=== PATIENT | female | born 1950 | race Caucasian/White ===

== ENCOUNTER 2019-09-30 15:34 | Observation (INO) | payer MEDICARE, BC, SELFPAY ==
[2019-09-30] VITALS (48 sets, daily range): BP systolic 100–150; BP diastolic 59–92; PULSE 51–81; RESP 11–23; TEMP 36.5–36.6; O2SAT 94–100
--- NOTE | 2019-09-30 16:01 | ED.GENADUL_ITS ---
Discharge Plan Discharge Details Chief Complaint: Chest Pain Admit Date/Time: 09/30/19 20:10 Admit Provider: Branden Rasheed Attending Provider: Branden Rasheed Primary Care Provider: Kenton Pizarro ED Provider: Tangela Conn Discharge Data Discharge Date/Time-TO BE ENTERED AT DEPARTURE: 09/30/19 21:10 Medical Decision Making Patient is a 69 year old female presenting today with c/c of CP that began a few hours ago. States that pain began in the left arm and states that it felt like her upper arm was in a vice. This discomfort began while she was waiting for her to have his chemotherapy. States that the CP did not develop until she was driving her home. States that this pain radiated from her central chest to her left shoulder. States that she began to feel nauseated at that time. No vomiting. [place] slightly SOB. Currently asympaomtic. States that symptoms resolved when she arrived here. She had an angioplasty in 1992, is not currently taking ASA or anticoagulant. States that this pain is not as severe as the pain she experienced at that time. She states that her mother in her 60s of cardiac disease, brother had bipast in his 60s. Have requested records from PCP. ECG reviewed by Dr. Marinelli. NSR with rate of 63 with no acute ischemic changes noted. Patient given full dose ASA, labs and CXR pending. Currently asympatomic so will hold off on nitro or pain medications at this time. Patient was initially asymptomatic. However, at approximately 1855, the patient began endorsing lightheadedness and mild nausea. She does not have any chest discomfort. She is not short of breath. No arm pain. We will repeat the EKG. Give Zofran to help with symptomatic management. With her feeling lightheaded, I am hesitant to begin her on nitro. After the EKG, I will discuss this further. EKG was reviewed by Dr. Black. Patient is in a sinus bradycardia with a rate of 56. No acute ischemic changes. Otherwise unchanged from previous. Patient is on metoprolol and has been taking her medications as prescribed. Repeat troponin remains less than 0.05. Patient continues to be asymptomatic. Patient has a heart score of 6. Am quite concerned regarding her moderate score and concerning history. Discussed risk/benefits of admission with the patient and her family. Spoke with hospitalist who agrees to admission for continued monitoring and stress testing tomorrow. HPI General Mode of arrival: ambulatory . Date/Time Provider Initiated Documentation: 09/30/19 15:58 . Limitations to Documentation: no limitations . Information obtained by: patient and RN notes reviewed . History of Present Illness 69 year old F presents to the emergency department with the chief complaint of CP, described as moderate and similar to prior episodes, Quality is described as stabbing (tight), and is localized to the chest. Patient extremity (LUE). Patient started experiencing this hour(s) and it has been now resolved. No relieving factors improve symptom(s), No exacerbating factors reported and Other factors that worsen symptoms (was at rest when the symptoms began) . Patient notes chest pain, nausea/vomiting (was nauseated, now resolved) and shortness of breath (now resolved); denies cough, diaphoresis, fever/chills, headaches and weakness. Patient did receive the following treatments prior to arrival, none Related Data Home Medications Medication Instructions Recorded Confirmed albuterol sulfate [Ventolin HFA] 2 puff INHALATION 6XD PRN 09/30/19 09/30/19 atorvastatin [Lipitor] 40 mg PO DAILY 09/30/19 09/30/19 cholecalciferol (vitamin D3) 2,000 unit PO DAILY 09/30/19 09/30/19 [Vitamin D3] docusate sodium [Colace] 100 mg PO DAILY 09/30/19 09/30/19 fluoxetine [Prozac] 40 mg PO DAILY 09/30/19 09/30/19 levothyroxine 75 mcg PO DAILY 09/30/19 09/30/19 loratadine 10 mg PO DAILY 09/30/19 09/30/19 losartan 100 mg PO DAILY 09/30/19 09/30/19 metformin 1,000 mg PO BID 09/30/19 09/30/19 metoprolol tartrate 50 mg PO BID 09/30/19 09/30/19 polyethylene glycol 3350 [Miralax] 17 g PO DAILY PRN 09/30/19 09/30/19 sennosides [Senokot] 8.6 mg PO QHS 09/30/19 09/30/19 topiramate [Topamax] 100 mg PO BID 09/30/19 09/30/19 ursodiol 300 mg PO BID 09/30/19 09/30/19 Allergies Allergy/AdvReac Type Severity Reaction Status Date / Time adhesive Allergy Unverified 09/30/19 15:45 Penicillins Allergy Unverified 09/30/19 15:45 Sulfa (Sulfonamide Allergy Unverified 09/30/19 15:45 Antibiotics) General Stated Complaint: Chest Pain NOE: 2 Review of Systems Constitutional Constitutional: Reports as per HPI, Denies chills, Denies fever(s), Denies headache(s), Denies lethargy and Denies poor appetite Eyes Eyes: Denies change in vision ENT Ears, Nose, Mouth, and Throat: Denies vertigo (hx of vertigo, none recently), Reports dizziness (lightheaded) and Denies headache(s) Cardiovascular Cardiovascular: Reports as per HPI, Reports chest pain, Denies dyspnea and Denies dyspnea on exertion Respiratory Respiratory: Reports as per HPI, Denies chest congestion, Denies cough, Denies pain on inspiration, Denies pain with cough, Denies dyspnea, Denies dyspnea on exertion and Denies wheezing Gastrointestinal Gastrointestinal: Reports as per HPI, Denies abdominal pain, Denies diarrhea, Reports nausea and Denies vomiting Musculoskeletal Musculoskeletal: Reports as per HPI, Denies back pain, Reports numbness (reports tingling in left hand) and Reports radiating pain into limb (into LUE) Integumentary/Breasts Skin/Breast: Reports as per HPI and Denies rash Neurologic Neurologic: Reports as per HPI, Denies vertigo (hx of vertigo, none recently), Reports dizziness (lightheaded), Denies headache(s) and Reports numbness (reports tingling in left hand) Allergic/Immunologic Allergic/Immunologic: Denies wheezing [facility] Medical History Anxiety (Chronic) Arthritis (Acute) Biliary cirrhosis (Acute) Coronary arteriosclerosis (Acute) Depression (Chronic) Fibromyalgia (Acute) Gastroesophageal reflux disease (Chronic) History of asthma (Acute) Hyperlipidemia (Acute) Hypertension (Chronic) Hypothyroidism (Chronic) Malignant tumor of rectum (Acute) Migraine (Chronic) Sciatica (Acute) Sjogren's disease (Acute) Sleep disorder (Acute) Type 2 diabetes mellitus (Acute) Vertigo (Acute) Family History Mother , heart disease Diabetes Hypertension Social History Smoking/Tobacco Use Status: Never Alcohol Intake: never Drug use: Never Substance use type: does not use Do you feel safe at home: Yes Do you feel safe in your relationship?: Yes Exam Const General: cooperative, healthy appearing, comfortable, no acute distress and well developed Nutritional Appearance: well nourished and overweight Orientation: alert, awake and oriented x3 HENMT Head: normal to inspection Ears: hearing grossly normal bilaterally Mouth: moist mucous membranes Chest Chest: normal inspection of the chest, normal palpation of entire chest wall and no crepitus Resp Effort & Inspection: normal respiratory effort, able to speak in complete sentences and no respiratory distress Auscultation: clear to auscultation bilaterally, no rales, no rhonchi and no wheezes Cardio Rate: regular rate Rhythm: regular rhythm Heart Sounds: S1 normal and S2 normal GI Inspection: normal to inspection, no edema and non-distended Palpation: soft, no hepatosplenomegaly, not firm, no guarding, not rigid and nontender Auscultation: normal bowel sounds Back/Spine/Pelvis Back: no CVA tenderness Thoracic/Lumbar Spine: thoracic and lumbar spine normal to inspection Skin General skin exam: no rashes or lesions noted Trauma: no lacerations or abrasions Neuro General: alert, awake and oriented x3 Cognition: normal cognition Speech: speech normal Gait: normal gait Extrem General: normal to inspection, normal capillary refill, no pedal edema, no calf tenderness and normal gait Psych Appearance: grossly normal and well kempt Mental Status: mental status grossly normal Speech and Movement: speech and movement normal Course Vital Signs Vital signs: Vital Signs Temperature 36.5 C 09/30/19 15:37 Pulse 64 09/30/19 15:37 Respiratory Rate 14 09/30/19 15:37 Blood Pressure 146/88 H 09/30/19 15:37 Pulse Oximetry 100 09/30/19 15:37 Temperature 36.5 C 09/30/19 15:37 Temperature Source Oral 09/30/19 15:37 Pulse 64 09/30/19 15:37 Respiratory Rate 14 09/30/19 15:37 Respiratory Effort Non-Labored 09/30/19 15:58 Blood Pressure 146/88 H 09/30/19 15:37 Blood Pressure Position Supine 09/30/19 15:37 Pulse Oximetry 100 09/30/19 15:37 Oxygen Delivery Method Room Air 09/30/19 15:37 Oxygen Flow Rate 0 09/30/19 15:37
[2019-09-30 16:29] LABS: Abs Immature Grans 0.01 k/cumm (0.0-0.09); Absolute Basophil Count 0.03 k/cumm (0.0-0.2); Absolute Eosinophil Count 0.18 k/cumm (0.0-0.7); Absolute Lymphocyte Count 1.57 k/cumm (1.2-3.4); Absolute Monocyte Count 0.56 k/cumm (0.11-0.7); Basophils % 0.6; Eosinophils % 3.4; HCT 39.8 % (36.0-46.0); HGB 13.3 g/dL (12.0-15.5); Immature Grans % 0.2 %; Lymphocytes % 29.9; Mean Corp. HGB Concentration 33.4 g/dL (32.0-36.0); Mean Corpuscular Hemoglobin 30.2 pg (27.0-33.0); Mean Corpuscular Volume 90.2 fL (80-95); Mean Platelet Volume 10.4 fL (8.0-11.0); Monocytes % 10.7; Neutrophils % 55.2; Platelet Count 277 x1000/uL (130-400); RBC 4.41 m/cumm (4.00-5.20); White Blood Cell Count 5.25 k/cumm (4.4-10.8)
[2019-09-30] MEDS: Aspirin 81 MG CHEW 324 MG CH (16:31)
[2019-09-30 16:43] LABS: PTT Activated 23.3 sec (21.0-31.4); Prothrombin Time 9.9 sec (9.3-11.0)
[2019-09-30 16:46] LABS: ALT 22 U/L (14-59); AST 19 U/L (15-37); Albumin 3.4 g/dL (3.4-5.0); Alkaline Phosphatase 97 U/L (46-116); Anion Gap 9.3 mmol/L (3-11); BUN 18 mg/dL (7-18); Bilirubin, Total 0.5 mg/dL (0.2-1.0); CO2 26.7 mmol/L (21.0-32.0); CREATININE 0.89 mg/dL (0.55-1.02); Calcium 9.4 mg/dL (8.5-10.1); Chloride 104 mmol/L (98-107); Glucose 105 mg/dL (74-106); Magnesium 1.7 mg/dL (1.8-2.4); Potassium 3.9 mmol/L (3.5-5.1); Sodium 140 mmol/L (136-145); Total Protein 7.6 g/dL (6.4-8.2); Troponin I < 0.05 ng/Ml (<0.06)
--- NOTE | 2019-09-30 16:56 | DI.RAD_ITS ---
EXAM: XR CHEST 2V PA LATERAL INDICATION: CHEST PAIN COMPARISON: No exams were available for comparison TECHNIQUE: 2D digital imaging was performed. FINDINGS: Heart size and pulmonary vasculature are within normal limits. The lungs are clear. No pleural effu elijah or pneumothorax is present. Age-appropriate degenerative changes are seen in the spine. There are surgical clips in the upper quadrant of the right abdomen, most consistent with prior cholecystec corina. IMPRESSION: No acute pulmonary process.
--- NOTE | 2019-09-30 17:03 | DI.VRAD_ITS ---
PROCEDURE INFORMATION: Exam: XR Chest, 2 Views Exam date and time: 09/30/2019 5:01 PM Age: 69 years old Clinical indication: Chest pain TECHNIQUE: Imaging protocol: XR of the chest Views: 2 views. COMPARISON: No relevant prior studies available. FINDINGS: Lungs: COPD. Pleural space: Unremarkable. No pleural effusion. No pneumothorax. Heart/Mediastinum: Unremarkable. No cardiomegaly. Bones/joints: Degenerative changes in the spine. Other findings: Cholecystectomy. IMPRESSION: COPD Dictated and Authenticated by: Tree Phan MD. Ordering:ABHINAV Honeycutt MD
[2019-09-30] MEDS: Ondansetron 4 MG/2 ML VIAL IVP (18:13)
[2019-09-30 19:19] LABS: Troponin I < 0.05 ng/Ml (<0.06)
--- NOTE | 2019-09-30 19:58 | W.PM.HP.N ---
Date of service: 09/30/19 Time of Service: 19:58 Assessment and Plan Assessment and plan (1) Arm pain: Status: Acute Assessment and plan: If not for the report of this symptom complex being similar to prior ACS I might have described this as more suggestive of cervical radiculitis. We will obtain third troponin and if negative would advise stress test in morning.Patient has received ASA here in ER. Will hold beta duane pending stress test, usual meds as is otherwise. Reviewed ADs, requests full code. History of Present Illness History of Present Illness Chief Complaint: arm pain Narrative: 69 female with remote h/o CAD, s/p PCI in . Today had episode of tightness LUE, with parashesiass in hand and then radiation of pain to posterior left neck and shoulder blade. At some point there was also some sharp left sided CP. No SOB, diaphoresis, some nausea. Reports similar though less intense such symptoms over passt 2 weeks. No relation to activity or neck motion. Of notte patient states that this constellation of symptoms is quite similarr to initial presentation at time of PCI. In ER troponin negative x 2; initial EKG unremarkable. Patient had episode of symptoms while in ER and EKG at the time was unchanged. Review of Systems All systems reviewed & are unremarkable except as noted in HPI and below PFSH Medical History Anxiety (Chronic) Arthritis (Acute) Biliary cirrhosis (Acute) Coronary arteriosclerosis (Acute) Depression (Chronic) Fibromyalgia (Acute) Gastroesophageal reflux disease (Chronic) History of asthma (Acute) Hyperlipidemia (Acute) Hypertension (Chronic) Hypothyroidism (Chronic) Malignant tumor of rectum (Acute) Migraine (Chronic) Sciatica (Acute) Sjogren's disease (Acute) Sleep disorder (Acute) Type 2 diabetes mellitus (Acute) Vertigo (Acute) Family History Mother , heart disease Diabetes Hypertension Social History Smoking/Tobacco Use Status: Never Alcohol Intake: never Drug use: Never Substance use type: does not use Do you feel safe at home: Yes Do you feel safe in your relationship?: Yes Meds Home Medications and Allergies Home Medications Medication Instructions Recorded Confirmed Type albuterol sulfate [Ventolin HFA] 2 puff INHALATION 6XD PRN 09/30/19 09/30/19 History atorvastatin [Lipitor] 40 mg PO DAILY 09/30/19 09/30/19 History beclomethasone dipropionate [Qvar 2 inh INHALATION Q12H PRN 09/30/19 09/30/19 History RediHaler] cholecalciferol (vitamin D3) 2,000 unit PO DAILY 09/30/19 09/30/19 History [Vitamin D3] docusate sodium [Colace] 100 mg PO DAILY 09/30/19 09/30/19 History fluoxetine [Prozac] 40 mg PO DAILY 09/30/19 09/30/19 History levothyroxine 75 mcg PO DAILY 09/30/19 09/30/19 History loratadine 10 mg PO DAILY 09/30/19 09/30/19 History losartan 100 mg PO DAILY 09/30/19 09/30/19 History metformin 1,000 mg PO BID 09/30/19 09/30/19 History metoprolol tartrate 50 mg PO BID 09/30/19 09/30/19 History polyethylene glycol 3350 [Miralax] 17 g PO DAILY PRN 09/30/19 09/30/19 History sennosides [Senokot] 8.6 mg PO QHS 09/30/19 09/30/19 History topiramate [Topamax] 100 mg PO BID 09/30/19 09/30/19 History ursodiol 300 mg PO BID 09/30/19 09/30/19 History Allergies Allergy/AdvReac Type Severity Reaction Status Date / Time adhesive Allergy Unverified 09/30/19 15:45 Penicillins Allergy Unverified 09/30/19 15:45 Sulfa (Sulfonamide Allergy Unverified 09/30/19 15:45 Antibiotics) Exam Narrative Exam Narrative: 133/74, 59, 11, 36.5. HEENT unremarkable; neck supple, no pain with ROM and no spinal or paraspinal tenderness; lungs clear; heart distnat but RRR; abdomen soft and NT; pelvic/rectal deferred; extremities w/o edema pulses 2+/=; neuro Ox3, motor 5/5 and intact light touch Results Labs Result diagrams: 09/30/19 15:45 09/30/19 15:45 Labs: Laboratory Results - last 24 hr 09/30/19 09/30/19 09/30/19 15:45 15:45 15:45 WBC 5.25 RBC 4.41 Hgb 13.3 Hct 39.8 MCV 90.2 MCH 30.2 MCHC 33.4 RDW 13.0 Plt Count 277 MPV 10.4 Immature Gran % 0.2 Neutrophils % 55.2 Lymphocytes % 29.9 Monocytes % 10.7 Eosinophils % 3.4 Basophils % 0.6 Absolute Neutrophils 2.90 Absolute Lymphocytes 1.57 Absolute Monocytes 0.56 Absolute Eosinophils 0.18 Absolute Basophils 0.03 PT 9.9 INR 1.0 APTT 23.3 Sodium 140 Potassium 3.9 Chloride 104 Carbon Dioxide 26.7 Anion Gap 9.3 BUN 18 Creatinine 0.89 Estimated GFR/1.73 m2 >= 60.00 Glucose 105 Calcium 9.4 Magnesium 1.7 L Total Bilirubin 0.5 AST 19 ALT 22 Alkaline Phosphatase 97 Troponin I < 0.05 Total Protein 7.6 Albumin 3.4 09/30/19 18:50 WBC RBC Hgb Hct MCV MCH MCHC RDW Plt Count MPV Immature Gran % Neutrophils % Lymphocytes % Monocytes % Eosinophils % Basophils % Absolute Neutrophils Absolute Lymphocytes Absolute Monocytes Absolute Eosinophils Absolute Basophils PT INR APTT Sodium Potassium Chloride Carbon Dioxide Anion Gap BUN Creatinine Estimated GFR/1.73 m2 Glucose Calcium Magnesium Total Bilirubin AST ALT Alkaline Phosphatase Troponin I < 0.05 Total Protein Albumin Last Vital Signs Temp 36.5 C 09/30/19 15:37 Pulse 59 L 09/30/19 19:31 Resp 11 L 09/30/19 19:31 BP 133/74 09/30/19 19:31 Pulse Ox 97 09/30/19 19:31
[2019-09-30] MEDS: Senna TAB 1 TAB PO (22:02)
[2019-09-30] MEDS: Acetaminophen 325 MG TAB 650 MG PO (23:46)
[2019-10-01] VITALS (8 sets, daily range): BP systolic 109–131; BP diastolic 70–87; PULSE 56–70; RESP 16–20; TEMP 36.4–37.2; O2SAT 96–98
[2019-10-01] MEDS: Levothyroxine 75 MCG TAB PO (07:22)
[2019-10-01 07:27] LABS: Troponin I < 0.05 ng/Ml (<0.06)
[2019-10-01] MEDS: Cholecalciferol (Vitamin D3) 1,000 UNIT TAB 2000 UNITS PO (08:49)
[2019-10-01] MEDS: Losartan 50 MG TAB 100 MG PO (08:50)
[2019-10-01] MEDS: FLUoxetine 20 MG CAP 40 MG PO (08:50)
[2019-10-01] MEDS: Topiramate 100 MG TAB PO ×2 (08:50→19:42)
[2019-10-01] MEDS: Docusate Sodium 100 MG CAP PO (08:50)
[2019-10-01] MEDS: Ursodiol 300 MG CAP PO ×2 (08:50→12:27)
--- NOTE | 2019-10-01 14:02 | PGE_ITS ---
Date of Service Date of service: 10/01/19 Time of Service: 14:02 Assessment and Plan Assessment and plan (1) Atypical chest pain: Status: Acute Assessment and plan: Will check CTA of the chest and if negative proceed with scheduling an outpatient Lexiscan stress MPI. If that is negative then I would recommend that she have further work-up for cervical DJD. (2) Arm pain: Status: Acute Assessment and plan: As above Qualifiers: Laterality: left Qualified Code(s): M79.602 - Pain in left arm Subjective Subjective Interval history since last seen: 69-year-old female with a past medical history significant for coronary artery disease status post angioplasty in the early who presented last night with acute onset of left arm pain described as a tightness squeezing sensation along with pain in her neck as well as in her chest. States for the past month she has had chest pain off and on not necessarily exertionally related. Sometimes associated will doing her grocery shopping and other times occurring at rest. Yesterday's episode occurred while she was waiting on her who was having chemotherapy down it [facility]. She is ruled out for acute myocardial infarction with negative troponins x3 as well as a couple of EKGs that showed no ischemic changes. Dr. Branden Rasheed admitted her last night and felt that this is probably cervical radiculopathy coming from DJD of her spine. 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 She was scheduled for a treadmill stress ECG today however this was canceled because of lack of inpatient slots. Her beta-duane was withheld last night in preparation for a treadmill stress ECG. However in light of her DJD of her lumbosacral spine as well as her chronic hip pain I do not think she would be able to perform adequately on a treadmill and we will arrange for her to get a Lexiscan stress MPI as an outpatient. Because her chest tightness associated with acute dyspnea been ordered a CTA of her chest to rule out PE and rule out thoracic aortic aneurysm. If her CT is negative I will discharge her on aspirin and as needed nitroglycerin and arrange an outpatient stress MPI using Lexiscan for this . Exam Narrative Exam Narrative: Pleasant obese female lying in bed in semi-artis position in no acute distress. Currently pain-free. Neck supple with normal carotid pulses no JVD. Lungs are clear to auscultation. Heart is regular rate and rhythm without murmur rub or gallop. Abdomen obese soft and nontender. Extremities without peripheral cyanosis or edema. She has normal radial pulses. I perform range of motion testing her left arm with abduction abduction and circumduction at the shoulder and could not elicit any radicular symptoms. Objective Objective Clinical Data: Abnormal lab results 09/30/19 Range/Units 15:45 Magnesium 1.7 L (1.8-2.4) mg/dL Vital Signs Temperature 36.6 C 10/01/19 11:50 Temperature Source Tympanic 10/01/19 11:50 Pulse 60 10/01/19 11:50 Pulse Rhythm Regular 10/01/19 03:35 Pulse 60 09/30/19 20:40 Respiratory Rate 18 10/01/19 11:50 Respiratory Effort Non-Labored 10/01/19 03:35 Respiratory Depth Normal 10/01/19 03:35 Respiratory Pattern Normal 10/01/19 03:35 Blood Pressure 110/78 10/01/19 11:50 Blood Pressure Mean 74 09/30/19 20:31 Blood Pressure Position Supine 09/30/19 15:37 Pulse Oximetry 96 10/01/19 11:50 Oxygen Delivery Method Room Air 10/01/19 11:50 Oxygen Flow Rate 0 10/01/19 11:50 Pain Level 0 10/01/19 11:50 Intake & Output 09/30/19 10/01/19 10/01/19 23:59 11:59 23:59 Intake Total 360 / 360 Output Total 300 / 300 350 / 350 Balance -280 / -280 Weight 102.965 kg Intake: IV Oral 360 / 360 Output: Urine 300 / 300 350 / 350 Other: Urine Color Yellow Yellow Pale Yellow Urine Appearance Cloudy Cloudy Clear Urine Odor Strong Normal Stool Size Moderate Stool Characteristics Soft Voiding Methods Toilet Toilet Bedside Commode Laboratory Results WBC 5.25 k/cumm (4.4-10.8) 09/30/19 15:45 RBC 4.41 m/cumm (4.00-5.20) 09/30/19 15:45 Hgb 13.3 g/dL (12.0-15.5) 09/30/19 15:45 Hct 39.8 % (36.0-46.0) 09/30/19 15:45 MCV 90.2 fL (80-95) 09/30/19 15:45 MCH 30.2 pg (27.0-33.0) 09/30/19 15:45 MCHC 33.4 g/dL (32.0-36.0) 09/30/19 15:45 RDW 13.0 % (11.7-14.6) 09/30/19 15:45 Plt Count 277 x1000/uL (130-400) 09/30/19 15:45 MPV 10.4 fL (8.0-11.0) 09/30/19 15:45 Immature Gran % 0.2 % 09/30/19 15:45 Neutrophils % 55.2 09/30/19 15:45 Lymphocytes % 29.9 09/30/19 15:45 Monocytes % 10.7 09/30/19 15:45 Eosinophils % 3.4 09/30/19 15:45 Basophils % 0.6 09/30/19 15:45 Absolute Neutrophils 2.90 k/cumm (1.2-6.7) 09/30/19 15:45 Absolute Lymphocytes 1.57 k/cumm (1.2-3.4) 09/30/19 15:45 Absolute Monocytes 0.56 k/cumm (0.11-0.7) 09/30/19 15:45 Absolute Eosinophils 0.18 k/cumm (0.0-0.7) 09/30/19 15:45 Absolute Basophils 0.03 k/cumm (0.0-0.2) 09/30/19 15:45 PT 9.9 sec (9.3-11.0) 09/30/19 15:45 INR 1.0 (0.9-1.1) 09/30/19 15:45 APTT 23.3 sec (21.0-31.4) 09/30/19 15:45 Sodium 140 mmol/L (136-145) 09/30/19 15:45 Potassium 3.9 mmol/L (3.5-5.1) 09/30/19 15:45 Chloride 104 mmol/L (98-107) 09/30/19 15:45 Carbon Dioxide 26.7 mmol/L (21.0-32.0) 09/30/19 15:45 Anion Gap 9.3 mmol/L (3-11) 09/30/19 15:45 BUN 18 mg/dL (7-18) 09/30/19 15:45 Creatinine 0.89 mg/dL (0.55-1.02) 09/30/19 15:45 Estimated GFR/1.73 m2 >= 60.00 (mL/min/1.73m2) 09/30/19 15:45 Glucose 105 mg/dL (74-106) 09/30/19 15:45 Calcium 9.4 mg/dL (8.5-10.1) 09/30/19 15:45 Magnesium 1.7 mg/dL (1.8-2.4) L 09/30/19 15:45 Total Bilirubin 0.5 mg/dL (0.2-1.0) 09/30/19 15:45 AST 19 U/L (15-37) 09/30/19 15:45 ALT 22 U/L (14-59) 09/30/19 15:45 Alkaline Phosphatase 97 U/L (46-116) 09/30/19 15:45 Troponin I < 0.05 ng/Ml (<0.06) 10/01/19 06:20 Total Protein 7.6 g/dL (6.4-8.2) 09/30/19 15:45 Albumin 3.4 g/dL (3.4-5.0) 09/30/19 15:45 Reviewed Pertinent PMH: Yes Objective Narrative Objective Narrative: Sinus bradycardia at a rate of 50 bpm. Borderline first- degree AV block with a ID interval [address] ms. No acute ischemic [address] or T wave changes.
[2019-10-01] MEDS: Normal Saline Flush 10 ML SYR IVP (14:35)
--- NOTE | 2019-10-01 14:43 | CHAPLAIN ---
Yasmin had two visitors with her when I stopped in. She was resting in bed. I introduced myself, explained my role and offered support.
[2019-10-01] MEDS: Omnipaque 350 MG/ML 100 ML BTL IJ (15:53)
--- NOTE | 2019-10-01 15:56 | DI.CT_ITS ---
EXAM: CT CHEST PE CTA CLINICAL HISTORY: Chest pain and dyspnea. TECHNIQUE: Imaging Protocol: Axial CT angiography was performed with multi-slice acquisition and mu lti-planar and/or 3D reconstructions. CONTRAST MATERIAL: Intravenous: Omnipaque 350 Contrast volume:100 mL COMPARISON: No exams were available for comparison FINDINGS: Pulmonary Arteries: Pulmonary emboli are seen in branches to the right lower lobe. There also appear to be emboli in branches to the right upper lobe. Emboli may be present in branches to the left low er lobe. Tracheobronchial tree: Patent where visualized. Mediastinum and Joana: No dominant adenopathy or fluid collection. Pulmonary parenchyma: Atelectatic changes are seen in the lung bases. No focal consolidating infiltr ates are present. No architectural distortion. Pleura: No effusion or pneumothorax. Heart: The heart is not dilated. Coronary artery calcifications are present. No pericardial effusion or right heart strain is evident. Aorta: No evidence of aneurysm or dissection. Upper abdomen: There is a 3.6 x 2.9 centimeter homogeneously hypodense lesion in the left upper quad rant of the abdomen incompletely imaged on this current examination. Bones: Degenerative changes in the spine. IMPRESSION: 1. Pulmonary emboli in branches to the right upper and right lower lobes. Possibly small emboli in t he left lower lobe. No evidence of right heart strain. 2. 3.6 x 2.9 centimeter hypodense lesion in the left upper quadrant of the abdomen. This is incomple tely imaged on the current examination. CT scan of the abdomen should be considered for further eval uation. DATA REPOSITORY: All CT scans at this facility are submitted to the National Radiology Data Registry (NRDR) Dose Index Registry (DIR) with the [employer] ([employer]). RADIATION OPTIMIZATION: All CT scans at this facility use at least one of these dose optimization te chniques: automated exposure control; mA and/or kV adjustment per patient size (includes targeted exa ms where dose is matched to clinical indication); or iterative reconstruction.
--- NOTE | 2019-10-01 16:13 | DI.VRAD_ITS ---
Addendum created by Tree Phan MD on 10/01/2019 4:27:29 PM EST THIS REPORT CONTAINS FINDINGS THAT MAY BE CRITICAL TO PATIENT CARE. The findings were verbally communicated via telephone conference with Rico Coleman at 4:27 PM EST on 10/01/2019. The findings were acknowledged and understood. Initial report created on 10/01/2019 4:13:04 PM EST PROCEDURE INFORMATION: Exam: CT Angiography Chest With Contrast Exam date and time: 10/01/2019 3:53 PM Age: 69 years old Clinical indication: Other: Chest pain and dyspnea TECHNIQUE: Imaging protocol: Computed tomographic angiography of the chest with intravenous contrast. 3D rendering: MIP and/or 3D reconstructed images were created by the technologist. Contrast material: OMNIPAQUE 350; Contrast volume: 100 ml; Contrast route: IV; COMPARISON: CR XR CHEST 2V PA LATERAL 09/30/2019 4:56 PM FINDINGS: Pulmonary arteries: Moderate-sized pulmonary emboli to the right lower lobe and possibly small emboli to the left lower lobe. Subsegmental atelectatic changes at the pulmonary bases. Aorta: Unremarkable. No aortic aneurysm. No aortic dissection. Lungs: Unremarkable. No consolidation. No masses. Pleural space: Unremarkable. No pneumothorax. No pleural effusion. Heart: Unremarkable. No cardiomegaly. No pericardial effusion. Gallbladder and bile ducts: Cholecystectomy. Lymph nodes: Unremarkable. No enlarged lymph nodes. Bones/joints: Degenerative changes in the spine. Soft tissues: Unremarkable. IMPRESSION: Moderate-sized pulmonary emboli to the right lower lobe and possibly small emboli to the left lower lobe. Dictated and Authenticated by: Tree Phan MD. Ordering:[facility] Jared Gómez MD
[2019-10-01] MEDS: Apixaban 5 MG TAB 10 MG PO (17:06)
--- NOTE | 2019-10-01 19:00 | PDOC.CMIN ---
Care Management Initial Assess REASON FOR HOSPITALIZATION:: ARM PAIN PAST MEDICAL HISTORY/PAST SURGICAL HISTORY:: Anxiety, arthritis, biliary cirrhosis, depression, fibromyalgia, GERD, asthma, hyperlipidemia, hypertension, hypothyroidism, malignant tumor of rectum, migraine, sciatica, sjogren's disease, sleep disorder, type 2 DM, vertigo PREVIOUS FUNCTIONAL STATUS/SOCIAL/FAMILY SUPPORTS:: Yasmin resides in [place] with her , Leonel. She is independent at baseline with ADLs in the community. CURRENT FUNCTIONAL STATUS:: Yasmin is sitting up on her bed, pleasant in interaction and gracious about her care. She anticipates discharging home after additional work up and shares no concerns at this time. ADVANCE DIRECTIVES:: None on file at [facility]. Has patient been provided with information about the portal?: No Did the patient sign up for the portal?: No CODE STATUS:: Full Code CURRENT HOME/COMMUNITY SERVICES/EQUIPMENT:: No current services or equipment. PRIMARY CARE PHYSICIAN:: Kenton Pizarro; [place]. POTENTIAL DISCHARGE NEEDS:: Follow up appointments. PATIENT/FAMILY EDUCATION NEEDS:: Review discharge instructions, discuss Ask Me Three. ANTICIPATED BARRIERS TO DISCHARGE:: None identified at this time. TRANSPORTATION:: Via private vehicle with family. PLAN:: Yasmin will continue work up for chest/arm pain. Anticipate she will discharge home with outpatient follow up plan, no other services anticipated at this time. Yasmin will transport via private vehicle with family.
[2019-10-01] MEDS: Atorvastatin 40 MG TAB PO (19:41)
[2019-10-01] MEDS: Ursodiol 300 MG CAP 900 MG PO (21:06)
[2019-10-01] MEDS: Acetaminophen 325 MG TAB 650 MG PO (21:06)
[2019-10-01] MEDS: Senna TAB 1 TAB PO (21:06)
[2019-10-02 04:13] VITALS: BP 113/76; PULSE 62; RESP 16; TEMP 36.5; O2SAT 96
[2019-10-02] MEDS: Levothyroxine 75 MCG TAB PO (05:15)
[2019-10-02 07:30] VITALS: BP 134/75; PULSE 60; RESP 18; TEMP 36.5; O2SAT 97
[2019-10-02 07:32] VITALS: PULSE 65
[2019-10-02 08:06] LABS: D-Dimer 2047 ng/mlFEU (<500)
[2019-10-02] MEDS: Apixaban 5 MG TAB 10 MG PO (08:15)
[2019-10-02] MEDS: Docusate Sodium 100 MG CAP PO (08:15)
[2019-10-02] MEDS: Ursodiol 300 MG CAP 600 MG PO (08:15)
[2019-10-02] MEDS: Metoprolol 50 MG TAB PO (08:15)
[2019-10-02] MEDS: Losartan 50 MG TAB 100 MG PO (08:16)
[2019-10-02] MEDS: Cholecalciferol (Vitamin D3) 1,000 UNIT TAB 2000 UNITS PO (08:16)
[2019-10-02] MEDS: FLUoxetine 20 MG CAP 40 MG PO (08:16)
[2019-10-02] MEDS: Topiramate 100 MG TAB PO (08:44)
--- NOTE | 2019-10-02 09:04 | DI.US_ITS ---
EXAM: US EXTREMITY VENOUS BI CLINICAL HISTORY: right leg pain; acute PE. TECHNIQUE: Bilateral lower extremity venous ultrasound performed using grayscale, color-flow, and sp ectral Doppler analysis. COMPARISON: No exams were available for comparison FINDINGS: The bilateral common femoral and, femoral demonstrate normal compressibility, augmentation, and color Doppler. Right popliteal vein demonstrates normal compressibility, augmentation, and color flow. T here is hypoechoic thrombus seen in the left popliteal vein. The posterior tibial veins are patent. Saphenofemoral junctions are unremarkable. IMPRESSION: Right: Negative for DVT Left: DVT in the left popliteal vein.
[2019-10-02 10:06] VITALS: O2SAT 96
[2019-10-02 11:20] VITALS: BP 115/75; PULSE 61; RESP 22; TEMP 36.7; O2SAT 95
--- NOTE | 2019-10-02 14:08 | W.NUTCONSULT ---
Date of service: 10/02/19 Time of Service: 14:08 Nutritional Consult ASSESSMENT: 69 year old female admitted with arm pain. PMH: fibromyalgia, NIDDM, obesity. Following CHO diet with adequate intake. Meds include metformin. Attempted to meet with Yasmin to provide information on outpatient diabetes and weight management counseling. Will provide education when available. MONITORING AND EVALUATION: po intake, weight and blood sugar levels Time Spent in Nutritional Counseling and Treatment: 0 time spent face to face
[2019-10-02 15:40] VITALS: BP 114/81; PULSE 65; RESP 16; TEMP 36.9; O2SAT 97
--- NOTE | 2019-10-02 17:40 | W.PM.DS.N ---
DS: Diagnosis Discharge Diagnosis (1) Acute pulmonary embolism: Status: Acute Asessment and Plan: Continue Eliquis at 10 mg twice a day for the next 14 days then decrease the dose to 5 mg twice a day for total of 3 months. Follow-up with your primary care provider for further surveillance of underlying risk factors for thromboembolism including the possibility of recurrent colorectal carcinoma. Results of echocardiogram is pending at this time. Results should be forwarded to your PCP (2) Deep venous thrombosis of left popliteal vein: Status: Acute Asessment and Plan: Treatment as above Discharge Plan Disposition Patient Disposition: HOME Condition: Improving Discharge Details Chief Complaint: Chest Pain Reason For Visit: chest pain; dyspnea Admit Date/Time: 09/30/19 20:10 Admit Provider: Branden Rasheed Attending Provider: Branden Rasheed Primary Care Provider: Kenton Pizarro Provider: Tangela Conn Hospital Course Hospital Course: 69-year-old female with a past medical history of hypertension and hyperlipidemia, biliary cirrhosis who had a 1 month history of exertional dyspnea and atypical chest pain presented with acute onset of left arm tightness and left-sided chest tightness. She was ruled out for acute coronary syndrome by negative troponin levels x3 and normal EKG. Subsequently she underwent a CTA of her chest that demonstrated bilateral lower lobe pulmonary emboli and an ultrasound of her lower extremity showed a left popliteal DVT. Patient was started on apixaban 10 mg twice a day. Echocardiogram was ordered and performed on the day of discharge the results of which are pending. Patient is advised to continue on apixaban 10 mg twice a day for 14 days and then decrease her dose to 5 mg twice a day for the next 3 months. She should follow-up with her primary care provider to look for underlying risk factors for thromboembolism such as recurrence of cancer. She has a known history of rectal carcinoma for which she had remote surgery for and has a colostomy. She is advised to follow-up with her oncologist and/or her GI specialist to ensure that there is no recurrence of her colorectal cancer. Home Meds and New Rx's Prescriptions: New apixaban 5 mg tablet 10 mg PO Q12H Qty: 92 RF: 2 Continued fluoxetine [Prozac] 40 mg Capsule 40 mg PO DAILY RF: 0 atorvastatin [Lipitor] 40 mg Tablet 40 mg PO DAILY RF: 0 sennosides [Senokot] 8.6 mg Tablet 8.6 mg PO QHS RF: 0 polyethylene glycol 3350 [Miralax] 17 gram Powder In Packet 17 g PO DAILY PRNRF: 0 levothyroxine 75 mcg Tablet 75 mcg PO DAILY RF: 0 metformin 1,000 mg Tablet 1,000 mg PO BID RF: 0 ursodiol 300 mg Capsule 300 mg PO BID RF: 0 metoprolol tartrate 50 mg Tablet 50 mg PO BID RF: 0 docusate sodium [Colace] 100 mg Capsule 100 mg PO DAILY RF: 0 albuterol sulfate [Ventolin HFA] 90 mcg/actuation Hfa Aerosol Inhaler 2 puff INHALATION 6XD PRNRF: 0 topiramate [Topamax] 100 mg Tablet 100 mg PO BID RF: 0 losartan 100 mg Tablet 100 mg PO DAILY RF: 0 loratadine 10 mg Tablet 10 mg PO DAILY RF: 0 cholecalciferol (vitamin D3) [Vitamin D3] 2,000 unit Tablet 2,000 unit PO DAILY RF: 0 Discharge Instructions Instructions: Pulmonary Embolism (DC) Additional Instructions: Continue Eliquis (apixaban) at 10 mg (two 5 mg tablets) twice a day for 14 days then decrease the dose to 5 mg twice a day. You should continue on anticoagulation for a minimum of 3 months and follow-up with your primary care provider in the next week. Your primary care provider will direct you as to further work-up for risk factors for thromboembolism which should include surveillance for any underlying cancer Stand Alone Forms: Nursing Discharge Form Referrals: Kenton Fung [[employer]] - 10/09/19 9:40 am Kenton Pizarro [Primary Care Provider] - 10/03/19 1:00 pm Activity:: Activity as Tolerated Equipment/Supplies:: No Equipment Needed Diet:: As Tolerated DS: Summary Status at Discharge Functional status at discharge: independent ambulation Overall status at discharge: patient is progressing back to baseline Mental Status: mental status grossly normal Speech and Movement: speech and movement normal Mood: congruent mood Affect: normal affect Exam Psych Mental Status: mental status grossly normal Speech and Movement: speech and movement normal Mood: congruent mood Affect: normal affect DS: Data Vitals/I&O Vitals and I&O: Vital Signs Temperature 36.9 C 10/02/19 15:40 Temperature Source Tympanic 10/02/19 15:40 Pulse 65 10/02/19 15:40 Pulse Rhythm Regular 10/02/19 15:55 Pulse 60 09/30/19 20:40 Respiratory Rate 16 10/02/19 15:40 Respiratory Effort Non-Labored 10/02/19 15:55 Respiratory Depth Normal 10/02/19 15:55 Respiratory Pattern Normal 10/02/19 15:55 Blood Pressure 114/81 10/02/19 15:40 Blood Pressure Mean 74 09/30/19 20:31 Blood Pressure Position Supine 09/30/19 15:37 Pulse Oximetry 97 10/02/19 15:40 Oxygen Delivery Method Room Air 10/02/19 15:40 Oxygen Flow Rate 0 10/02/19 15:40 Pain Level 0 10/02/19 15:40 Intake & Output 10/01/19 10/02/19 10/02/19 23:59 11:59 23:59 Intake Total 260 / 620 450 / 700 250 / 700 Output Total 500 / 850 1400 / 1400 Balance -240 / -230 -950 / -700 250 / -700 Intake: IV 10 Oral 240 / 600 450 / 690 240 / 690 Output: Urine 500 / 850 1400 / 1400 Other: Urine Color Yellow Yellow Urine Appearance Clear Clear Clear Urine Odor Normal Voiding Methods Toilet Toilet Data Completed and Pending Labs on day of discharge: Labs from last 24 hours 10/02/19 06:20 D-Dimer 2047 H [facility] Medical History Anxiety (Chronic) Arthritis (Acute) Biliary cirrhosis (Acute) Coronary arteriosclerosis (Acute) Depression (Chronic) Fibromyalgia (Acute) Gastroesophageal reflux disease (Chronic) History of asthma (Acute) Hyperlipidemia (Acute) Hypertension (Chronic) Hypothyroidism (Chronic) Malignant tumor of rectum (Acute) Migraine (Chronic) Sciatica (Acute) Sjogren's disease (Acute) Sleep disorder (Acute) Type 2 diabetes mellitus (Acute) Vertigo (Acute) Family History Mother , heart disease Diabetes Hypertension Social History Smoking/Tobacco Use Status: Never Alcohol Intake: never Drug use: Never Substance use type: does not use Do you feel safe at home: Yes Do you feel safe in your relationship?: Yes
--- NOTE | 2019-10-02 18:07 | PDOC.CMDIS ---
- If Service Date Differs Date of service: 10/02/19 Time of Service: 18:08 LACE Index Scoring Tool - Questions: Length of Stay (in days): 3 Acuity (Admit via E.D.?): Yes Comorbidities: Diabetes w/o Complication E.D. Visits: 1 - Answers: Total Score: 8 Risk of Readmission: Low Risk Care Management Discharge Reason for Hospitalization: ARM PAIN Discharge Plan: Yasmin will return home with no additional services at this time. Her will drive her home via private vehicle. CM assisted Yasmin with her new prescription for Eliquis, giving her a 30 day free coupon, and filling out a Benefit Review Form to help with the copay of $322/month. She will follow up with her PCP, as recommended. Patient/Family Education Needs: Review discharge instructions regarding medications, discussion of self care including Ask Me Three
[2019-10-02] MEDS: Apixaban 5 MG TAB (18:20)
== END 2019-10-02 18:37 | disposition home or self-care (01) ==
LOC: ER 18:48 → MS 21:14
PROVIDERS: Admitting Provider General Practice; Emergency Provider Physician Assistant; PCP Family Medicine; Visit Provider Internal Medicine
DX: I26.99 Other pulmonary embolism without acute cor pulmonale (principal); I82.432 Acute embolism and thrombosis of left popliteal vein; E78.5 Hyperlipidemia, unspecified; I10 Essential (primary) hypertension; Z85.048 Personal history of other malignant neoplasm of rectum, rectosigmoid junction, and anus; Z93.3 Colostomy status; E03.9 Hypothyroidism, unspecified; E11.9 Type 2 diabetes mellitus without complications; Z98.61 Coronary angioplasty status; F32.9 Major depressive disorder, single episode, unspecified; Z79.84 Long term (current) use of oral hypoglycemic drugs
CPT/HCPCS: 36415; 71275; 80053; 93005; 96374; 99222; 99226; 99239; 99285; 71046; 83735; 84484; 85025; 85379; 85610; 85730; 93010; 93306; 93970; 99217; 99219; G0378; J2405; J3490